=== PATIENT | male | born 1970 | race Caucasian/White ===

== ENCOUNTER → 2023-06-22 | Outpatient (CLI) | payer BC ==
[~2023-06-22] MED LIST: CALCIUM CARB500 MG PO; ONDANSETRON H2 MG/ML IV; ONDANSETRON H2 MG/ML PO; PROBIOTIC1 EACH PO; STOOL SOFTENER240 M2 PO
== END | disposition home or self-care (01) ==
LOC: MRI 07:45
PROVIDERS: ATTEND Psychiatry & Neurology Neurology
DX: G43.719 Chronic migraine without aura, intractable, without status migrainosus (principal)

== ENCOUNTER → 2024-05-20 | Outpatient (CLI) | payer BC | END | disposition home or self-care (01) | LOC: CARD 03:59 | PROVIDERS: ATTEND Internal Medicine Cardiovascular Disease | DX: R07.89 Other chest pain (principal); R06.09 Other forms of dyspnea; R06.02 Shortness of breath ==